=== PATIENT | male | born 1980 | race Caucasian/White ===

== ENCOUNTER 2018-04-22 10:54 | Emergency (ER) | payer SELFPAY ==
[~2018-04-22] VITALS: Ht 182.9 cm; Wt 81.8 kg
[2018-04-22] MEDS ORDERED: CEPHALEXIN500 M1 PO (11:09)
[2018-04-22] MEDS ORDERED: BACTRIM DS1 TAB PO (11:09)
[2018-04-22 11:37] VITALS: BP 147/82
== END 2018-04-22 11:37 | disposition home or self-care (01) | DRG 603 ==
LOC: ED 10:54
PROC: 0H98X0Z Drainage of Buttock Skin with Drainage Device, External Approach (ICD-10-PCS; principal; 2018-04-22)
DX: L02.31 Cutaneous abscess of buttock (principal); L03.317 Cellulitis of buttock; B95.61 Methicillin susceptible Staphylococcus aureus infection as the cause of diseases classified elsewhere; F17.210 Nicotine dependence, cigarettes, uncomplicated

== ENCOUNTER 2019-05-25 17:10 | Emergency (ER) | payer SELFPAY ==
[~2019-05-25] VITALS: Ht 182.9 cm; Wt 90.9 kg
[~2019-05-25 17:10] MED LIST: BACTRIM DS1 TAB PO; CEPHALEXIN500 M1 PO
[2019-05-25 18:03] LABS: HEMATOCRIT 36.7 % (39.0-50.0); HEMOGLOBIN 12.1 g/dl (14.0-18.0); IMMATURE GRANULOCYTES 0.4 % (0.0-5.0); MEAN CELL VOLUME 86.8 fL CALC (80.0-100.0); MEAN CORPUSCULAR HGB 28.6 pG CALC (26.0-32.0); NEUT# 14.13 thou/uL (1.82-7.42); RED BLOOD COUNT 4.23 mill/uL (4.70-6.10); RED CELL DISTRI WIDTH 14.1 % (11.5-15.5)
[2019-05-25 18:20] LABS: ALKALINE PHOSPHATASE 127 u/l (38-126); ANION GAP 13 (6-22 (CALC)); BILIRUBIN, TOTAL 0.9 mg/dL (0.0-1.4); BUN 10 mg/dL (9-20); BUN/CREATININE RATIO 15 (12-20 (CALC)); CARBON DIOXIDE 26 mmol/l (22-30); CHLORIDE 100 mmol/l (95-108); CREATININE 0.6 mg/dL (0.7-1.3); GFR > 60 ML/MIN (>=60 (CALC)); GFR FOR AFR.AMER. > 60 ML/MIN (>=60 (CALC)); SGOT/AST 32 u/l (17-59); SODIUM 135 mmol/l (137-146); TOTAL PROTEIN 7.6 g/dL (6.3-8.2)
[2019-05-25 19:45] VITALS: BP 148/81
== END 2019-05-25 19:45 | disposition left against medical advice (07) | DRG 563 ==
LOC: ED 17:10
PROVIDERS: Family Medicine
DX: S63.612A Unspecified sprain of right middle finger, initial encounter (principal); F17.210 Nicotine dependence, cigarettes, uncomplicated; W22.8XXA Striking against or struck by other objects, initial encounter; Y93.89 Activity, other specified; Y92.009 Unspecified place in unspecified non-institutional (private) residence as the place of occurrence of the external cause; Z91.19 Patient's noncompliance with other medical treatment and regimen; B95.4 Other streptococcus as the cause of diseases classified elsewhere